=== PATIENT | female | born 1970 | race Caucasian/White ===

== ENCOUNTER 2017-08-02 10:00 | Emergency (ER) | payer OTHER | END 2017-08-02 11:30 | disposition home or self-care (01) | LOC: ERS 10:00 → LAB 10:00 → ERS 10:00 → EDSTATUS 11:40 | DX: S61.231A Puncture wound without foreign body of left index finger without damage to nail, initial encounter (principal); W46.1XXA Contact with contaminated hypodermic needle, initial encounter; Y92.69 Other specified industrial and construction area as the place of occurrence of the external cause; Y99.0 Civilian activity done for income or pay | CPT/HCPCS: 86803; 87340; 87389 ==

== ENCOUNTER 2019-08-29 10:45 | Emergency (ER) | payer OTHER ==
[2019-08-29] MEDS ORDERED: Ibuprofen 800 MG TAB ONE (11:03)
== END 2019-08-29 11:39 | disposition home or self-care (01) ==
LOC: ERS 10:45
DX: M25.552 Pain in left hip (principal); W18.30XA Fall on same level, unspecified, initial encounter
CPT/HCPCS: 99283